=== PATIENT | male | born 1975 | race Caucasian/White ===

== ENCOUNTER 2017-01-01 09:41 | Day surgery (SDC) | payer OTHER ==
[~2017-01-01 09:41] MED LIST: HYDROmorphone HCL 2 MG/ML VIAL IV PRN; RINGERS SOLUTION,LACTATED 1,000 ML IV PRN; ceFAZolin SODIUM 1 GM VIAL IV PRN; oxyCODONE HCL/ACETAMINOPHEN 1 TAB TABLET PO PRN
--- OUTSIDE RECORDS SUMMARY | 2017-01-01 09:46 | XMS REPORT | Continuity of Care Document ---
:1975 Author Organization [facility] ([facility]) Address [address] [place] [address] Phone [phone] Care Team Providers Name Role Phone Gallito Thomas Primary Care Provider [phone] Source Comments This disclosure is being made pursuant to the Care Everywhere program, applicable federal and state laws, and may not contain all informaitonavailable regarding this patient.[facility] ([facility]) Active Allergies and Adverse Reactions Allergen Noted Date Severity Reactions Comments Levofloxacin 06/06/2010 Urticaria (Hives),Angioedema,Rash Current Medications Prescription Sig. Disp. Refills Start Date End Date Status acetaminophen take 1,000 mg by Active (TYLENOL EX STR mouth as needed for ARTHRITIS PAIN) 500 Pain. mg tablet aspirin 81 mg EC take 81 mg by mouth Active tablet daily. omeprazole PO Take by mouth. OTC Active losartan 100 mg Take 1 Tab by mouth 90 Tab 4 11/30/2014 Active tablet daily. Indications: HYPERTENSION insulin lispro Take before meals. 75 mL 3 11/30/2014 Active (HumaLOG kwikpen) 100 Approx total daily unit/mL (3 mL) dose 70 units injection pen Indications: TYPE 1 DIABETES MELLITUS venlafaxine 37.5 mg Take daily as 90 Cap 3 11/30/2014 Active XR capsule directed Indications: GENERALIZED ANXIETY DISORDER SUPPLY blood glucose Check sugars 3 times 90 Strip 11 03/07/2015 Active (BLOOD GLUCOSE) test daily strips SUPPLY ONE TOUCH by In Vitro route 3 1 Each 0 03/07/2015 Active ULTRA 2 meter times daily For checking forearm glucose insulin glargine Take daily. Approx 75 mL 3 12/05/2015 Active (LanTUS SOLOSTAR) 100 dose 70 units unit/mL (3 mL) injection pen SUPPLY BD ULTRA-FINE For use 5 times 500 Each 3 12/05/2015 Active BELLA 32 x 4 MM pen daily needle Active Problems Problem Noted Date Hypertension 10/13/2012 Polycystic kidney disease 05/28/2009 Cervicalgia 09/14/2006 Type I (juvenile type) diabetes mellitus without mention of complication, 04/2003 uncontrolled Immunizations Name Dates Previously Given Next Due Influenza, unspecified 08/12/2012,07/14/2007 Social History Tobacco Use Types Packs/Day Years Used Date Current Some Day Smoker Cigarettes Smokeless Tobacco: Never Used Tobacco Cessation:Ready to Quit: Yes; Counseling Given: Yes Comments: Last Filed Vital Signs Vital Sign Reading Time Taken Blood Pressure 128/82 03/07/2015 7:53 AM CDT Pulse 72 03/07/2015 7:53 AM CDT Temperature 35.6 C (96.1 F) 03/07/2015 7:53 AM CDT Respiratory Rate 20 07/31/2011 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 [employer] Height 1.89 m (6' 2.41") 03/07/2015 7:53 AM CDT Weight 96.3 kg (212 lb 4.9 oz) 03/07/2015 7:53 AM CDT Body Mass Index 26.96 03/07/2015 7:53 AM CDT Oxygen Saturation - - Plan of Care Health Maintenance Due Date Last Done Comments Hepatitis B Vaccine (1 of 3 - 1975 Primary Series) Tdap Vaccine 1986 MMR Vaccine 1993 Td Vaccine 1993 Pneumococcal Vaccine (1 of 1994 - PPSV23) DIABETIC: Foot Exam 02/24/2011 DIABETIC: Retinal Eye Exam 02/24/2011 DIABETIC: Microalbumin 06/06/2011 06/06/2010, Additional history exists 05/30/2009, 12/30/2006 DIABETIC: Cholesterol 10/13/2013 10/13/2012, Additional history exists 10/18/2008, 12/30/2006 Diabetic: Hdl 10/13/2013 10/13/2012, Additional history exists 10/18/2008, 12/30/2006 Diabetic: Ldl 10/13/2013 10/13/2012, Additional history exists 10/18/2008, 10/06/2007 DIABETIC: Triglycerides 10/13/2013 10/13/2012, 10/18/2008, 12/30/2006 DIABETIC: Hemoglobin A1C 09/06/2015 03/07/2015, Additional history exists 11/30/2014, 10/13/2012 Influenza Vaccine: Seasonal 04/13/2016 08/12/2012, (#1) 07/14/2007 Results from Last 3 Months Not on file
[2017-01-01] MEDS ORDERED: INSULIN REGULAR, HUMAN 100 UNITS/ML VIAL IV ONE (11:14)
[2017-01-01] MEDS ORDERED: BUPIVACAINE HCL 50 ML VIAL IJ ONE ×2 (11:50)
[2017-01-01] MEDS ORDERED: RINGERS SOLUTION,LACTATED 1,000 ML IV ONE (12:00)
--- NOTE | 2017-01-01 12:05 | OR ---
Operative Report - Dictated Report Narrative: Date: 01/01/2017 Physician: Yobani Stephen M.D. Erosion Control Specialist: Ben Benitez PA-C Preoperative diagnosis: Left ring and long Dupuytren's mass and Trigger fingers Postoperative diagnosis: Left ring and long Dupuytren's mass and Trigger fingers Procedure: Left long and ring finger to protrude his mass excision and left long and ring finger A1 hemant release Anesthesia: General Plus local Complications: None Estimated blood loss: Minimal Tourniquet time: 13 Minutes at 250 mmHg Specimens: Mass to pathology Retained implants: None Drains: None Indications: Mr. Okeefe Is a 41 year-old diabetic male who has been followed in my clinic with complaints of trigger finger fingers and Dupuytren's mass in his palm which interfered with his work activities. Physical exam as demonstrated triggering of the finger as well as a prominent cord and mass in the palmar aspect of his left hand. Conservative measures have failed including but not limited to passage of time, activity modification, medications, and injections. The risks, benefits, and alternatives were discussed in clinic. The risks being bleeding, infection, nerve, tendon, blood vessel injury, persistent pain, wound competitions, need for additional procedures, and persistent symptoms. Consent was obtained in the clinic. Procedure: After marking the correct extremity in the preoperative holding area, a timeout was performed in the operating room. IV antibiotics consisting of Ancef were administered prior to the procedure. A well-padded tourniquet was applied to the operative upper arm. The arm was exsanguinated and tourniquet was inflated . 0.5% Marcaine without epinephrine was infused into the projected incision site at the palmar flexion crease over the metacarpal phalangeal joint in line with the digit. Using loupe magnification, a transverse incision in the appropriate palmar flexion crease in line with the digit. The prominent cord along with the long finger extended from the mid palm towards the base of the finger but did not extend onto the finger and was excised through the transverse incision. This resulted in a decrease prominence in his area of pain and tenderness. The same procedures on the ring finger with a smaller apparent Dupuytren's mass which was also excised. After removing the Dupuytren' s mass within proceeded to perform the trigger finger releases. Blunt dissection was carried down through the subcutaneous tissues using bipolar cautery for hemostasis. Care was taken to protect the digital nerves. Staying midline along the flexor tendon, the A1 hemant was identified. A brianna was made in the proximal edge of the A1 hemant and tenotomies were utilized in order to completely transect the A1 hemant. Care was to stay midline and avoid transection of the A2 hemant. Soft tissues overlying the flexor tendon proximal to the A1 hemant were also released ensuring that there were no other compressive structures contributing to the triggering. The finger was placed through range of motion and demonstrated no additional catching. The tendons were visualized and mobilized out of the wound, and did not demonstrate any gross pathology or masses that required debridement. The tendons were noted to be intact. Once was felt that we had decompressed the flexor tendons as they passed under the A1 hemant, the tourniquet was removed. Hemostasis was obtained with pressure and bipolar cautery. There was good return of color and capillary refill to the digit. Additional half percent Marcaine without epinephrine was infused into the skin edges. The wound was thoroughly irrigated. The skin was closed with interrupted 4-0 nylon. Sterile dressings consisting of Xeroform, 4 x 4, and Adelita were applied. All sponge, needle, blade, and instrument counts were correct prior to closing the wounds. The patient was awoken and transferred to the postanesthesia care unit in stable condition.
[2017-01-01 13:23] VITALS: BP 125/81
== END 2017-01-01 09:42 | disposition home or self-care (01) ==
LOC: AMB 09:41
PROVIDERS: ATTEND Orthopaedic Surgery
PROC: 0LN80ZZ Release Left Hand Tendon, Open Approach (ICD-10-PCS; 2017-01-01)
PROC: 0JBK0ZZ Excision of Left Hand Subcutaneous Tissue and Fascia, Open Approach (ICD-10-PCS; 2017-01-01)
PROC: 0LN80ZZ Release Left Hand Tendon, Open Approach (ICD-10-PCS; principal; 2017-01-01 11:00)
DX: M65.332 Trigger finger, left middle finger (principal); M65.342 Trigger finger, left ring finger; M72.0 Palmar fascial fibromatosis [Dupuytren]; E10.9 Type 1 diabetes mellitus without complications; I10 Essential (primary) hypertension; K21.9 Gastro-esophageal reflux disease without esophagitis; F17.200 Nicotine dependence, unspecified, uncomplicated; Z68.26 Body mass index [BMI] 26.0-26.9, adult